=== PATIENT | female | born 1980 | race Caucasian/White ===

== ENCOUNTER → 2019-05-16 | Outpatient (CLI) | payer BC ==
[2018-12-22 14:57] VITALS: BP 156/80
[~2019-05-16] MED LIST: AUGMENTIN 875-1 EAC1 PO; DELTASONE20 M1 PO; ENSKYCE 0.15 MG1 TAB PO; IPRATROPIUM BROM3 M1 IH
[2019-05-16 12:02] LABS: EOS % 0.3 % (1.0-5.0); HEMATOCRIT 41.2 % (37.0-47.0); LYMPH# 3.5 (1.50-4.00); MEAN CELL VOLUME 88 fl (78-100); MEAN CORPUSCULAR HEMOGLOBIN 28 pg (27-31); MEAN CORPUSCULAR HGB CONC 32 g/dL (33-37); MEAN PLATELET VOLUME 9.1 fl (7.4-10.4); MONO # 0.6 (0.20-0.80); NEU # 5.5 (1.40-6.50); PLATELET COUNT 338 K/mm3 (130-400); RED CELL DISTRIBUTION WIDTH 13.1 % (11.5-14.5); WHITE BLOOD COUNT 9.7 K/mm3 (4.8-10.8)
[2019-05-16 13:02] LABS: ALBUMIN 4.2 g/dL (3.5-5.0); POTASSIUM 4.3 mmol/L (3.5-5.1)
[2019-05-16 13:03] LABS: CALCIUM 9.9 mg/dL (8.3-10.5)
[2019-05-16 13:05] LABS: TOTAL PROTEIN 7.9 g/dL (6.4-8.3)
[2019-05-16 13:06] LABS: TOTAL BILIRUBIN 0.4 mg/dL (0.2-1.2)
== END ==
LOC: LAB 11:14
PROVIDERS: Family Medicine
DX: Z00.00 Encounter for general adult medical examination without abnormal findings (principal); I10 Essential (primary) hypertension

== ENCOUNTER → 2020-01-30 | Outpatient (CLI) | payer BC ==
[2018-12-22 14:57] VITALS: BP 156/80
[2020-01-30 15:12] LABS: URINE APPEARANCE CLEAR; URINE BILIRUBIN NEGATIVE (NEGATIVE); URINE BLOOD NEGATIVE (NEGATIVE); URINE COLOR YELLOW; URINE GLUCOSE NEGATIVE (NEGATIVE); URINE KETONE NEGATIVE (NEGATIVE); URINE LEUKOCYTE ESTERASE 1+ (NEGATIVE); URINE NITRATE NEGATIVE (NEGATIVE); URINE PROTEIN(semi-quant) TRACE mg/dL (NEGATIVE); URINE UROBILINOGEN NORMAL (NORMAL)
== END ==
LOC: LAB 14:54
PROVIDERS: Family Medicine
DX: R30.0 Dysuria (principal)

== ENCOUNTER → 2021-03-19 | Outpatient (CLI) | payer BC ==
[2021-03-19 11:59] LABS: PH-URINE 6.5 (5.0 - 8.0); URINE APPEARANCE CLOUDY; URINE BILIRUBIN NEGATIVE (NEGATIVE); URINE BLOOD 250 ery/uL (NEGATIVE); URINE COLOR YELLOW; URINE GLUCOSE NEGATIVE (NEGATIVE); URINE KETONE NEGATIVE (NEGATIVE); URINE NITRATE NEGATIVE (NEGATIVE); URINE PROTEIN(semi-quant) TRACE mg/dL (NEGATIVE); URINE UROBILINOGEN NORMAL (NORMAL)
[2021-03-19 12:00] LABS: URINE LEUKOCYTE ESTERASE 2+ (NEGATIVE); URINE WBC >50 /hpf (0-3)
== END ==
LOC: LAB 11:09
PROVIDERS: Family Medicine
DX: N39.0 Urinary tract infection, site not specified (principal)

== ENCOUNTER → 2021-10-30 | Outpatient (CLI) | payer BC ==
[2021-10-30 12:29] LABS: BASO # 0.01 K/mm3 (0.02-0.10); EOS # 0.03 K/mm3 (0.04-0.40); EOS % 0.4 % (1.0-5.0); HEMATOCRIT 37.9 % (37.0-47.0); HEMOGLOBIN 12.3 g/dL (12.5-16.0); LYMPH# 3.21 K/mm3 (1.50-4.00); MEAN CELL VOLUME 92 fl (78-100); MEAN CORPUSCULAR HEMOGLOBIN 30 pg (27-31); MEAN CORPUSCULAR HGB CONC 33 g/dL (33-37); MEAN PLATELET VOLUME 8.8 fl (7.4-10.4); MONO # 0.51 K/mm3 (0.20-0.80); NEU # 3.09 K/mm3 (1.40-6.50); PLATELET COUNT 289 K/mm3 (130-400); RED BLOOD COUNT 4.11 M/mm3 (4.10-5.30); RED CELL DISTRIBUTION WIDTH 12.5 % (11.5-14.5); WHITE BLOOD COUNT 6.9 K/mm3 (4.8-10.8)
[2021-10-30 12:56] LABS: POTASSIUM 4.3 mmol/L (3.5-5.1)
[2021-10-30 12:57] LABS: CALCIUM 10.1 mg/dL (8.3-10.5)
[2021-10-30 12:59] LABS: TOTAL PROTEIN 7.4 g/dL (6.4-8.3)
[2021-10-30 13:01] LABS: TOTAL BILIRUBIN 0.3 mg/dL (0.2-1.2)
[2021-10-30 22:09] LABS: FOLLICLE STIMULATING HORMONE 2.7 mIU/mL (()); LUTENIZING HORMONE 0.8 mIU/mL (()); PROGESTERONE 0.1 ng/mL (())
[2021-11-05 14:57] LABS: ESTRONE (E1) LEVEL 13 pg/mL (())
== END ==
LOC: LAB 11:59
PROVIDERS: Family Medicine
DX: Z00.00 Encounter for general adult medical examination without abnormal findings (principal); E78.5 Hyperlipidemia, unspecified; I10 Essential (primary) hypertension; F32.9 Major depressive disorder, single episode, unspecified; N91.1 Secondary amenorrhea; E66.9 Obesity, unspecified

== ENCOUNTER → 2023-09-22 | Outpatient (CLI) | payer BC | LOC: LAB 18:50 | DX: N39.0 Urinary tract infection, site not specified (principal) ==